=== PATIENT | female | born 1970 | race Caucasian/White ===

== ENCOUNTER 2018-02-27 10:23 | Observation (INO) | payer BC ==
[2018-02-27] MEDS ORDERED: SODIUM CHLORIDE 1,000 ML IV STA (10:56)
[2018-02-27] MEDS ORDERED: ACETAMINOPHEN 1000 MG/100 ML VIAL (NON FORMULARY) IVPB ONE (10:56)
[2018-02-27] MEDS ORDERED: ACETAMINOPHEN INJECTION 100 ML IVPB ONE (10:58)
[2018-02-27 10:59] LABS: HEMATOCRIT 32.7 % (32.4-45.2); HEMOGLOBIN 11.2 GM/dl (10.7-15.3); LYMPH % 13.3 % (8-40); MCH 27.4 pg (25.7-33.7); MCHC 34.2 g/dl (32.0-36.0); MEAN CELL VOLUME 80.1 fl (80-96); MEAN PLT VOLUME 8.4 fl (7.5-11.1); NEUT % 78.8 % (42.8-82.8); PLATELET COUNT 186 K/MM3 (134-434); RBC 4.08 M/mm3 (3.60-5.2); RDW 16.4 % (11.6-15.6); WHITE BLOOD COUNT 5.7 K/mm3 (4.0-10.8)
[2018-02-27 11:00] LABS: BASO % 1.9 % (0-2.0)
--- NOTE | 2018-02-27 11:03 | PDOC ---
History of Present Illness - History of Present Illness Initial Comments: 02/27/18 10:56 47 yo F with no significant pmh who p/w fever and cough. Patient reports 3 days of intermittent fevers without chills, and non productive cough. Reports waking up this AM with gradual bitemporal, dull, pulsating LOZA, with absent photophobia , phonophobia, or aura. Also complains of intermittent lightheadedness, and decreased PO intake. Patient also endorses congestive type symptoms, and lower back pain this AM. Endorses PO tylenol intake. Denies N/V, rash, myalgias, CP, hemoptysis, SOB, neck stiffness, abdominal pain , diarrhea, constipation, urinary complaints, weakness, lightheadedness, sensory changes. PMHx: Denies ROS: as noted above SHx: Recent sick contacts children. Works as Kindergarten statistical methods teacher. Daily hiking. Denies recent traveling or camping. Denies tobacco, Etoh , or IVDA. allergies: NKDA <Humberto Lazo - Last Filed: 02/27/18 14:38> <Rom Vargas - Last Filed: 03/06/18 07:24> - General Chief Complaint: Respiratory Stated Complaint: HEADACHE & FEVER Time Seen by Provider: 02/27/18 10:30 Past History - Past Medical History Anemia: No Asthma: No Cancer: No Cardiac Disorders: No CVA: No COPD: No CHF: No Dementia: No Diabetes: No GI Disorders: No Disorders: No HTN: No Hypercholesterolemia: No Liver Disease: No Psychiatric Problems: Yes (ANXIETY) Seizures: No Thyroid Disease: No - Surgical History Abdominal Surgery: Yes (Umbilical Hernia Repair) Appendectomy: No Cardiac Surgery: No Cholecystectomy: No Lung Surgery: No Neurologic Surgery: No Orthopedic Surgery: No - Suicide/Smoking/Psychosocial Hx Smoking History: Never smoked Hx Alcohol Use: Yes Drug/Substance Use Hx: No Substance Use Type: None Hx Substance Use Treatment: No <Humberto Lazo - Last Filed: 02/27/18 14:38> <Rom Vargas - Last Filed: 03/06/18 07:24> - Past Medical History Allergies/Adverse Reactions: Allergies Allergy/AdvReac Type Severity Reaction Status Date / Time codeine Allergy Nausea/vomi Verified 05/16/15 08:17 ting Home Medications: Ambulatory Orders Paroxetine HCl [Paxil] 10 mg PO HS 05/24/14 Amox-Tr/K Cl [Augmentin 875-125mg Tablet -] 1 tab PO BID@0800,1730 #10 tablet Review of Systems - Review of Systems Comments:: 02/27/18 11:03 GENERAL/CONSTITUTIONAL: No fever or chills. No weakness. HEAD, EYES, EARS, NOSE AND THROAT: No change in vision. No ear pain or discharge. No sore throat. CARDIOVASCULAR: No chest pain or shortness of breath RESPIRATORY: +cough. No wheezing, or hemoptysis. GASTROINTESTINAL: No nausea, vomiting, diarrhea or constipation. GENITOURINARY: No dysuria, frequency, or change in urination. MUSCULOSKELETAL: No joint or muscle swelling or pain. No neck pain. . SKIN: No rash NEUROLOGIC: + headache. No vertigo, loss of consciousness, or change in strength /sensation. ENDOCRINE: No increased thirst. No abnormal weight change HEMATOLOGIC/LYMPHATIC: No anemia, easy bleeding, or history of blood clots. ALLERGIC/IMMUNOLOGIC: No hives or skin allergy. <Humberto Lazo - Last Filed: 02/27/18 14:38> *Physical Exam - Vital Signs Last Vital Signs Temp Pulse Resp BP Pulse Ox 102.9 F H 88 16 103/59 100 02/27/18 10:30 02/27/18 10:30 02/27/18 10:30 02/27/18 10:30 02/27/18 10:30 - Physical Exam Comments: 02/27/18 11:04 GENERAL: Awake, alert, and fully oriented, in no acute distress HEAD: No signs of trauma, normocephalic, atraumatic EYES: PERRLA, EOMI, sclera anicteric, conjunctiva clear ENT: Dry mucous membranes. Auricles normal inspection, hearing grossly normal, nares patent, oropharynx clear without exudates. NECK: Normal ROM, supple, no lymphadenopathy, JVD, or masses LUNGS: No distress, speaks full sentences, clear to auscultation bilaterally HEART: Regular rate and rhythm, normal S1 and S2, no murmurs, rubs or gallops, peripheral pulses normal and equal bilaterally. EXTREMITIES : Normal inspection, Normal range of motion, no edema. No clubbing or cyanosis. SKIN: Warm, Dry, normal turgor, no rashes or lesions noted <Humberto Lazo - Last Filed: 02/27/18 14:38> - Vital Signs Last Vital Signs Temp Pulse Resp BP Pulse Ox 99.6 F 85 18 103/59 100 02/27/18 14:30 02/27/18 14:30 02/27/18 14:30 02/27/18 10:30 02/27/18 10:30 <Rom Vargas S - Last Filed: 03/06/18 07:24> ED Treatment Course - LABORATORY CBC & Chemistry Diagram: 02/27/18 10:55 02/27/18 10:55 <Humberto Lazo - Last Filed: 02/27/18 14:38> - LABORATORY CBC & Chemistry Diagram: 03/02/18 06:30 03/02/18 06:30 - ADDITIONAL ORDERS Additional order review: Laboratory Results 02/27/18 02/27/18 02/27/18 12:38 12:15 10:55 Sodium 133 L Potassium 3.7 Chloride 102 Carbon Dioxide 25 Anion Gap 6 L BUN 8 Creatinine 0.8 Creat Clearance w eGFR > 60 Random Glucose 109 H Lactic Acid 0.9 Calcium 8.5 Total Bilirubin 0.7 AST 83 H ALT 74 H Alkaline Phosphatase 81 Total Protein 6.6 Albumin 3.6 Urine Color Fabiola Urine Appearance Clear Urine pH 5.5 Ur Specific [place] 1.010 Urine Protein 1+ H Urine Glucose (UA) Negative Urine Ketones 1+ H Urine Blood 3+ H Urine Nitrite Negative Urine Bilirubin Negative Urine Urobilinogen 1.0 Ur Leukocyte Esterase Negative Urine RBC 50-80 Urine WBC 0-3 Ur Epithelial Cells Rare 02/27/18 10:55 Influenza Types A,B Antigen (HAIDER) - Final Nasopharyngeal Swab - Final 02/27/18 10:55 RBC 4.08 MCV 80.1 MCHC 34.2 RDW 16.4 H MPV 8.4 Neutrophils % 78.8 Lymphocytes % 13.3 Monocytes % 6.0 Eosinophils % 0.0 Basophils % 1.9 - Medications Given in the ED: ED Medications Discontinued Medications Generic Name Dose Route Start Last Admin Trade Name Freq PRN Reason Stop Dose Admin Acetaminophen 1,000 mg 02/27/18 10:56 02/27/18 11:04 Ofirmev Injection - IVPB 02/27/18 10:57 1,000 mg ONCE ONE Administration Ceftriaxone Sodium 1,000 mg 02/27/18 13:35 02/27/18 14:00 Rocephin - IVPUSH 02/27/18 13:36 1,000 mg ONCE ONE Administration Sodium Chloride 1,000 mls @ 1,000 mls/hr 02/27/18 10:56 02/27/18 11:00 Normal Saline - IV 02/27/18 11:55 1,000 mls/hr ASDIR STA Administration Oseltamivir Phosphate 75 mg 02/27/18 11:21 02/27/18 11:35 Tamiflu - PO 02/27/18 11:22 75 mg ONCE ONE Administration <Rom Vargas S - Last Filed: 03/06/18 07:24> Medical Decision Making - Medical Decision Making 02/27/18 11:04 47 yo F with no significant pmh who p/w fever, cough, and LOZA. A&OX3, PO temp 102.9, VSS. Patient with absent nuchal findings, neruo complaints, or AMS. Low suspicion of meningitis. Low suspicion of SAH. Patient LOZA gradual onset, low severity, and consistent with prior LOZA's. Differential includes viral URI, PNA, Influenza. ED Course: CBC,CMP NS, Tylenol IV 1000 mg CXR, Influenza A&B Swab 02/27/18 11:25 Tamiflu sent to pharmacy 02/27/18 13:20 CXR: RLL posterior mass like density. CT Chest 02/27/18 14:38 Patient admitted to med/surg Dr. up. Consulted Dr. Rae Infectious disease and Dr. Francisco pulmonology <Humberto Lazo - Last Filed: 02/27/18 14:38> *DC/Admit/Observation/Transfer - Discharge Dispostion Decision to Admit order: Yes - Attestations Physician Attestion: 02/27/18 11:17 I attest to the information provided in this note. <Humberto Lazo - Last Filed: 02/27/18 14:38> - Discharge Dispostion Decision to Admit order: Yes <Rom Vargas S - Last Filed: 03/06/18 07:24> Diagnosis at time of Disposition: Cough, Pulmonary infiltrate - Discharge Dispostion Disposition: HOME Condition at time of disposition: Good
[2018-02-27] MEDS ORDERED: OSELTAMIVIR PHOSPHATE 75 MG CAPSULE PO ONE (11:21)
[2018-02-27 11:27] LABS: ALBUMIN 3.6 g/dl (3.5-5.0); ALK PHOS 81 U/L (32-92); ANION GAP 6 (8-16); BILIRUBIN,TOTAL 0.7 mg/dl (0.2-1.0); BLOOD UREA NITROGEN 8 mg/dl (7-18); CALCIUM 8.5 mg/dl (8.4-10.2); CHLORIDE 102 mmol/L (98-107); CO2 25 mmol/L (22-28); CREATININE 0.8 mg/dl (0.6-1.3); GLUCOSE,RANDOM 109 mg/dl (74-106); POTASSIUM 3.7 mmol/L (3.5-5.1); SGOT/AST 83 U/L (10-42); SGPT/ALT 74 U/L (10-40); SODIUM 133 mmol/L (136-145); TOT PROT 6.6 g/dl (6.4-8.3)
[2018-02-27] MEDS ORDERED: OSELTAMIVIR PHOSPHATE 75 MG CAPSULE ONE (11:29)
[2018-02-27 12:46] LABS: PH,URINE 5.5 (4.5-8); URINE APPEARANCE Clear; URINE BILIRUBIN Negative (NEGATIVE); URINE GLUCOSE (UA) Negative (NEGATIVE); URINE KETONE 1+ (NEGATIVE); URINE LEUK ESTERASE Negative (NEGATIVE); URINE NITRITE Negative (NEGATIVE)
[2018-02-27 12:47] LABS: URINE COLOR AMBER; URINE PROTEIN 1+ (NEGATIVE)
[2018-02-27 12:59] LABS: EPI CELLS RARE /HPF; URINE RBC 50-80 /hpf (0-3); URINE WBC 0-3 (0-5)
[2018-02-27] MEDS ORDERED: AZITHROMYCIN IVPB 500 MG in DEXTROSE 5%-WATER - 250 ML IVPB ONE (13:35)
[2018-02-27] MEDS ORDERED: AZITHROMYCIN 500 MG VIAL IVPB ONE (13:54)
[2018-02-27] MEDS ORDERED: cefTRIAXone SODIUM 1 GM VIAL ONE (13:54)
--- NOTE | 2018-02-27 14:53 | PDOC ---
Attending Attestation - Resident Resident Name: Rodolfo Lazoson - ED Attending Attestation I have performed the following: I have examined & evaluated the patient, The case was reviewed & discussed with the resident, I agree w/resident's findings & plan, Exceptions are as noted - HPI HPI: Fever, cough, malais x 3 days 02/27/18 14:52 - Physicial Exam PE: Alert.oriented x 3 Flushed face Hyperemic pharynx Few crackles right base 02/27/18 14:49 - Critical Care Time Total Critical Care Time: 30 Critical Care Statement: The care of this patient involved high complexity decision making to prevent further life threatening deterioration of the patient 's condition and/or to evaluate & treat vital organ system(s) failure or risk of failure. - Medical Decision Making Patient has been worked out forsuspected viral syndrome, vs pneumonia Blood work and atbc started in a timely fashion 02/27/18 14:52
[2018-02-27 16:30] VITALS: BMI 22.9
--- NOTE | 2018-02-27 16:57 | HP ---
Admitting History and Physical - Primary Care Physician PCP: Ruben Story - Admission History of Present Illness: 47 yo F with no significant pmh who p/w fever and cough. Patient reports 3 days of intermittent fevers without chills, and non productive cough. Reports waking up this AM with gradual bitemporal, dull, pulsating LOZA, with absent photophobia , phonophobia, or aura. Also complains of intermittent lightheadedness, and decreased PO intake. Patient also endorses congestive type symptoms, and lower back pain this AM. Endorses PO tylenol intake. - Past Medical History ...LMP: 02/20/18 ...: No - Smoking History Smoking history: Never smoked Have you smoked in the past 12 months: No - Alcohol/Substance Use Hx Alcohol Use: Yes (social) Home Medications - Allergies Allergies/Adverse Reactions: Allergies Allergy/AdvReac Type Severity Reaction Status Date / Time codeine Allergy Nausea/vomi Verified 05/16/15 08:17 ting - Home Medications Home Medications: Ambulatory Orders Paroxetine HCl [Paxil] 10 mg PO HS 05/24/14 Amox-Tr/K Cl [Augmentin 875-125mg Tablet -] 1 tab PO BID@0800,1730 #10 tablet Physical Examination Vital Signs: Vital Signs Temperature 100.3 F H 02/27/18 16:08 Pulse Rate 96 H 02/27/18 16:08 Respiratory Rate 18 02/27/18 16:08 Blood Pressure 90/53 02/27/18 16:08 O2 Sat by Pulse Oximetry (%) 100 02/27/18 16:08 Constitutional: Yes: No Distress HENT: Yes: Atraumatic Neck: Yes: Supple Cardiovascular: Yes: Regular Rate and Rhythm Respiratory: Yes: Rhonchi, Wheezes Gastrointestinal: Yes: Normal Bowel Sounds Extremities: Yes: WNL Edema: No Peripheral Pulses WNL: Yes Neurological: Yes: Alert, Oriented Labs: CBC, BMP 02/27/18 10:55 02/27/18 10:55 Imaging - Results X-ray: Report Reviewed Cat Scan: Report Reviewed Problem List - Problems (1) Pneumonia Assessment/Plan: iv abx prn nebs pulmonary and id consult Code(s): J18.9 - PNEUMONIA, UNSPECIFIED ORGANISM (2) Cough Assessment/Plan: prn cough syrup Code(s): R05 - COUGH (3) Pulmonary infiltrate Code(s): R91.8 - OTHER NONSPECIFIC ABNORMAL FINDING OF LUNG FIELD Assessment/Plan Laboratory Tests 02/27/18 02/27/18 02/27/18 10:55 10:55 12:15 WBC 5.7 RBC 4.08 Hgb 11.2 Hct 32.7 MCV 80.1 MCH 27.4 MCHC 34.2 RDW 16.4 H Plt Count 186 MPV 8.4 Neutrophils % 78.8 Lymphocytes % 13.3 Monocytes % 6.0 Eosinophils % 0.0 Basophils % 1.9 Sodium 133 L Potassium 3.7 Chloride 102 Carbon Dioxide 25 Anion Gap 6 L BUN 8 Creatinine 0.8 Creat Clearance w eGFR > 60 Random Glucose 109 H Lactic Acid 0.9 Calcium 8.5 Total Bilirubin 0.7 AST 83 H ALT 74 H Alkaline Phosphatase 81 Total Protein 6.6 Albumin 3.6 Urine Color Urine Appearance Urine pH Ur Specific [place] Urine Protein Urine Glucose (UA) Urine Ketones Urine Blood Urine Nitrite Urine Bilirubin Urine Urobilinogen Ur Leukocyte Esterase Urine RBC Urine WBC Ur Epithelial Cells 02/27/18 12:38 WBC RBC Hgb Hct MCV MCH MCHC RDW Plt Count MPV Neutrophils % Lymphocytes % Monocytes % Eosinophils % Basophils % Sodium Potassium Chloride Carbon Dioxide Anion Gap BUN Creatinine Creat Clearance w eGFR Random Glucose Lactic Acid Calcium Total Bilirubin AST ALT Alkaline Phosphatase Total Protein Albumin Urine Color Fabiola Urine Appearance Clear Urine pH 5.5 Ur Specific [place] 1.010 Urine Protein 1+ H Urine Glucose (UA) Negative Urine Ketones 1+ H Urine Blood 3+ H Urine Nitrite Negative Urine Bilirubin Negative Urine Urobilinogen 1.0 Ur Leukocyte Esterase Negative Urine RBC 50-80 Urine WBC 0-3 Ur Epithelial Cells Rare
[2018-02-27] MEDS ORDERED: ALBUTEROL SO4 0.083% IH SOL 2.5 MG/3 ML VIAL.NEB. NEB PRN (17:00)
--- NOTE | 2018-02-27 17:59 | CON.ID ---
Consult Consult Specialty:: infectious diseases Reason for Consultation:: pneumonia - History of Present Illness Chief Complaint: cough fever weakness History of Present Illness: 47 yo F with no significant pmh who is admitted with fever and cough. Patient reports 3 days of intermittent fevers without chills, and non productive cough. patient mentions that she has takne multiple tylenolol with no relief and finally came to the hospital also she is c/o of severe headache and weakness minimal sputum production patient came to the hospital and was worked up - History Source History Provided By: Patient Limitations to Obtaining History: No Limitations - Past Medical History ...LMP: 02/20/18 ...: No - Alcohol/Substance Use Hx Alcohol Use: Yes (social) - Smoking History Smoking history: Never smoked Have you smoked in the past 12 months: No Home Medications - Allergies Allergies/Adverse Reactions: Allergies Allergy/AdvReac Type Severity Reaction Status Date / Time codeine Allergy Nausea/vomi Verified 05/16/15 08:17 ting - Home Medications Home Medications: Ambulatory Orders Paroxetine HCl [Paxil] 10 mg PO HS 05/24/14 Oseltamivir Phosphate [Tamiflu] 75 mg PO BID 5 Days #10 capsule MDD 2 tab Review of Systems - Review of Systems Constitutional: reports: Chills, Fever Eyes: reports: No Symptoms HENT: reports: No Symptoms Cardiovascular: reports: No Symptoms Respiratory: reports: Cough, SOB Gastrointestinal: reports: No Symptoms Genitourinary: reports: No Symptoms Musculoskeletal: reports: No Symptoms Integumentary: reports: No Symptoms Neurological: reports: No Symptoms Endocrine: reports: No Symptoms Hematology/Lymphatic: reports: No Symptoms Psychiatric: reports: No Symptoms Physical Exam Vital Signs: Vital Signs Temperature 100.3 F H 02/27/18 16:08 Pulse Rate 96 H 02/27/18 16:08 Respiratory Rate 18 02/27/18 16:08 Blood Pressure 90/53 02/27/18 16:08 O2 Sat by Pulse Oximetry (%) 100 02/27/18 16:08 Constitutional: Yes: Well Nourished, Calm, Mild Distress Eyes: Yes: Conjunctiva Clear HENT: Yes: Atraumatic Neck: Yes: Supple, Trachea Midline Cardiovascular: Yes: Regular Rate and Rhythm Respiratory: Yes: Poor Air Entry (on the rt side), Rhonchi Gastrointestinal: Yes: Normal Bowel Sounds, Soft Musculoskeletal: Yes: WNL Extremities: Yes: WNL Neurological: Yes: Alert, Oriented Labs: CBC, BMP 02/27/18 10:55 02/27/18 10:55 Imaging - Results Chest X-ray: Report Reviewed, Image Reviewed Cat Scan: Report Reviewed, Image Reviewed Assessment/Plan Problem List - Problems (1) Pneumonia Code(s): J18.9 - PNEUMONIA, UNSPECIFIED ORGANISM (2) Cough Code(s): R05 - COUGH (3) Pulmonary infiltrate Code(s): R91.8 - OTHER NONSPECIFIC ABNORMAL FINDING OF LUNG FIELD plan will start patient on abx monitor for fever close watch rest as per the team
[2018-02-27] MEDS: ACETAMINOPHEN 325 MG TABLET (FP) PO PRN (18:31)
[2018-02-27] MEDS: PIPERACILLIN/TAZOB 3.375 GM 3.375 GM in DEXTROSE 5%-WATER - 50 ML IVPB SCH (19:24)
[2018-02-27] MEDS ORDERED: ZOLPIDEM TARTRATE 5 MG TABLET PO PRN (21:13)
[2018-02-27] MEDS: PARoxetine HCL 20 MG TABLET (FP) PO SCH (21:36)
[2018-02-28] MEDS: PIPERACILLIN/TAZOB 3.375 GM 3.375 GM in DEXTROSE 5%-WATER - 50 ML IVPB SCH ×3 (01:17→18:10)
[2018-02-28] MEDS: ACETAMINOPHEN 325 MG TABLET (FP) PO PRN ×2 (05:08→22:15)
[2018-02-28 08:19] LABS: BASO % 0.5 % (0-2.0); EOS % 0.1 % (0-4.5); HEMATOCRIT 31.2 % (32.4-45.2); HEMOGLOBIN 10.4 GM/dl (10.7-15.3); LYMPH % 17.8 % (8-40); MCH 26.6 pg (25.7-33.7); MCHC 33.3 g/dl (32.0-36.0); MEAN PLT VOLUME 9.1 fl (7.5-11.1); MONO % 9.7 % (3.8-10.2); NEUT % 71.9 % (42.8-82.8); PLATELET COUNT 209 K/MM3 (134-434); WHITE BLOOD COUNT 5.1 K/mm3 (4.0-10.8)
[2018-02-28 10:03] LABS: ALBUMIN 3.2 g/dl (3.5-5.0); ALK PHOS 104 U/L (32-92); ANION GAP 8 (8-16); BILIRUBIN,TOTAL 0.6 mg/dl (0.2-1.0); BLOOD UREA NITROGEN 6 mg/dl (7-18); CALCIUM 8.2 mg/dl (8.4-10.2); CHLORIDE 102 mmol/L (98-107); CO2 21 mmol/L (22-28); CREATININE 0.8 mg/dl (0.6-1.3); GLUCOSE,RANDOM 119 mg/dl (74-106); POTASSIUM 3.6 mmol/L (3.5-5.1); SGOT/AST 98 U/L (10-42); SGPT/ALT 103 U/L (10-40); SODIUM 131 mmol/L (136-145); TOT PROT 6.2 g/dl (6.4-8.3)
--- NOTE | 2018-02-28 15:24 | PN ---
Progress Note, Physician - Current Medication List Current Medications: Active Medications Acetaminophen (Tylenol -) 650 mg PO Q6H PRN PRN Reason: FEVER Last Admin: 02/28/18 05:08 Dose: 650 mg Albuterol Sulfate (Ventolin 0.083% Nebulizer Soln -) 1 amp NEB Q4H PRN PRN Reason: SHORT OF BREATH/WHEEZING Piperacillin Sod/Tazobactam (Sod 3.375 gm/ Dextrose) 50 mls @ 100 mls/hr IVPB Q8H-IV WOLF PRN Reason: Protocol Last Admin: 02/28/18 10:13 Dose: 100 mls/hr Paroxetine HCl (Paxil -) 10 mg PO HS WOLF Last Admin: 02/27/18 21:36 Dose: 10 mg Zolpidem Tartrate (Ambien -) 5 mg PO HS PRN PRN Reason: INSOMNIA Last Admin: 02/27/18 22:13 Dose: 5 mg - Objective Vital Signs: Vital Signs Temperature 101.0 F H 02/28/18 06:00 Pulse Rate 94 H 02/28/18 06:00 Respiratory Rate 18 02/28/18 08:49 Blood Pressure 102/45 02/28/18 06:00 O2 Sat by Pulse Oximetry (%) 97 02/28/18 08:49 Constitutional: Yes: No Distress HENT: Yes: Atraumatic Neck: Yes: Supple Cardiovascular: Yes: Regular Rate and Rhythm Respiratory: Yes: Rhonchi Gastrointestinal: Yes: Normal Bowel Sounds Extremities: Yes: WNL Edema: No Neurological: Yes: Alert, Oriented Labs: CBC, BMP 02/28/18 07:30 02/28/18 07:30 Problem List - Problems (1) Pneumonia Assessment/Plan: iv abx prn nebs Code(s): J18.9 - PNEUMONIA, UNSPECIFIED ORGANISM (2) Cough Assessment/Plan: prn cough syrup Code(s): R05 - COUGH (3) Pulmonary infiltrate Code(s): R91.8 - OTHER NONSPECIFIC ABNORMAL FINDING OF LUNG FIELD
--- NOTE | 2018-02-28 17:21 | PN ---
Progress Note, Physician - Current Medication List Current Medications: Active Medications Acetaminophen (Tylenol -) 650 mg PO Q6H PRN PRN Reason: FEVER Last Admin: 02/28/18 05:08 Dose: 650 mg Albuterol Sulfate (Ventolin 0.083% Nebulizer Soln -) 1 amp NEB Q4H PRN PRN Reason: SHORT OF BREATH/WHEEZING Piperacillin Sod/Tazobactam (Sod 3.375 gm/ Dextrose) 50 mls @ 100 mls/hr IVPB Q8H-IV WOLF PRN Reason: Protocol Last Admin: 02/28/18 10:13 Dose: 100 mls/hr Paroxetine HCl (Paxil -) 10 mg PO HS WOLF Last Admin: 02/27/18 21:36 Dose: 10 mg Zolpidem Tartrate (Ambien -) 5 mg PO HS PRN PRN Reason: INSOMNIA Last Admin: 02/27/18 22:13 Dose: 5 mg - Objective Vital Signs: Vital Signs Temperature 101.0 F H 02/28/18 06:00 Pulse Rate 94 H 02/28/18 06:00 Respiratory Rate 18 02/28/18 08:49 Blood Pressure 102/45 02/28/18 06:00 O2 Sat by Pulse Oximetry (%) 97 02/28/18 08:49 Labs: CBC, BMP 02/28/18 07:30 02/28/18 07:30
--- NOTE | 2018-02-28 18:13 | CON.PULM ---
Consult Consult Specialty:: PULMONARY Referred by:: MARU Reason for Consultation:: PNEUMONIA - History of Present Illness Chief Complaint: COUGH/FEVER History of Present Illness: 47 yo F with no significant pmh who p/w fever and cough. Patient reports 3 days of intermittent fevers without chills, and non productive cough. Reports waking up this AM with gradual bitemporal, dull, pulsating LOZA, with absent photophobia , phonophobia, or aura. Also complains of intermittent lightheadedness, and decreased PO intake. Patient also endorses congestive type symptoms, and lower back pain this AM. Endorses PO tylenol intake. 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 Cardio/Vascular: No: AFIB Pulmonary: No: Asthma, COPD Gastrointestinal: No: Ascites Hepatobiliary: No: Cirrhosis Renal/: No: Renal Failure ...LMP: 02/20/18 ...: No Psych: No: Addictions Endocrine: No: Diabetes Mellitus - Alcohol/Substance Use Hx Alcohol Use: Yes (social) - Smoking History Smoking history: Never smoked Have you smoked in the past 12 months: No - Social History Place of : [facility] Home Medications - Allergies Allergies/Adverse Reactions: Allergies Allergy/AdvReac Type Severity Reaction Status Date / Time codeine Allergy Nausea/vomi Verified 05/16/15 08:17 ting - Home Medications Home Medications: Ambulatory Orders Paroxetine HCl [Paxil] 10 mg PO HS 05/24/14 Oseltamivir Phosphate [Tamiflu] 75 mg PO BID 5 Days #10 capsule MDD 2 tab Family Disease History - Family Disease History Family History: Unremarkable Review of Systems - Review of Systems Constitutional: reports: Fever, Lethargy, Night Sweats Eyes: denies: Blind Spots HENT: denies: Difficult Swallowing Neck: denies: Decreased ROM Cardiovascular: denies: Chest Pain Respiratory: reports: Cough, Exercise Intolerance, SOB, SOB on Exertion. denies : Hemoptysis Gastrointestinal: denies: Abdominal Pain Genitourinary: denies: Burning Breasts: reports: No Symptoms Reported Physical Exam Vital Sings: Vital Signs Temperature 101.0 F H 02/28/18 06:00 Pulse Rate 94 H 02/28/18 06:00 Respiratory Rate 18 02/28/18 08:49 Blood Pressure 102/45 02/28/18 06:00 O2 Sat by Pulse Oximetry (%) 97 02/28/18 08:49 Constitutional: Yes: Calm Eyes: Yes: EOM Intact HENT: Yes: Normocephalic Neck: Yes: Trachea Midline Cardiovascular: Yes: Regular Rate and Rhythm Respiratory: Yes: Rhonchi (right base) Gastrointestinal: Yes: Normal Bowel Sounds Extremities: Yes: WNL Neurological: Yes: WNL Labs: CBC, BMP 02/28/18 07:30 02/28/18 07:30 rest reviewed Imaging - Results Chest X-ray: Report Reviewed, Image Reviewed Cat Scan: Report Reviewed, Image Reviewed Assessment/Plan CAP PANIC DISORDER IV ABS CHECK CULTURES INCENTIVE PAZ NEBS/O2 NEEDED Vanesa MOSS MD
--- NOTE | 2018-02-28 18:17 | PN ---
Progress Note, Physician History of Present Illness: starting to feel better breathing better - Current Medication List Current Medications: Active Medications Acetaminophen (Tylenol -) 650 mg PO Q6H PRN PRN Reason: FEVER Last Admin: 02/28/18 05:08 Dose: 650 mg Albuterol Sulfate (Ventolin 0.083% Nebulizer Soln -) 1 amp NEB Q4H PRN PRN Reason: SHORT OF BREATH/WHEEZING Piperacillin Sod/Tazobactam (Sod 3.375 gm/ Dextrose) 50 mls @ 100 mls/hr IVPB Q8H-IV WOFL PRN Reason: Protocol Last Admin: 02/28/18 10:13 Dose: 100 mls/hr Paroxetine HCl (Paxil -) 10 mg PO HS WOLF Last Admin: 02/27/18 21:36 Dose: 10 mg Zolpidem Tartrate (Ambien -) 5 mg PO HS PRN PRN Reason: INSOMNIA Last Admin: 02/27/18 22:13 Dose: 5 mg - Objective Vital Signs: Vital Signs Temperature 101.0 F H 02/28/18 06:00 Pulse Rate 94 H 02/28/18 06:00 Respiratory Rate 18 02/28/18 08:49 Blood Pressure 102/45 02/28/18 06:00 O2 Sat by Pulse Oximetry (%) 97 02/28/18 08:49 Constitutional: Yes: No Distress, Calm Cardiovascular: Yes: Regular Rate and Rhythm Respiratory: Yes: Regular, Poor Air Entry, Rhonchi (rt side) Gastrointestinal: Yes: Normal Bowel Sounds, Soft Musculoskeletal: Yes: WNL Extremities: Yes: WNL Neurological: Yes: Alert, Oriented Psychiatric: Yes: Alert, Oriented Labs: CBC, BMP 02/28/18 07:30 02/28/18 07:30 Assessment/Plan Problem List - Problems (1) Pneumonia Code(s): J18.9 - PNEUMONIA, UNSPECIFIED ORGANISM (2) Cough Code(s): R05 - COUGH (3) Pulmonary infiltrate Code(s): R91.8 - OTHER NONSPECIFIC ABNORMAL FINDING OF LUNG FIELD plan continue abx close watch incentive nayan rest as per the team
[2018-02-28] MEDS: PARoxetine HCL 20 MG TABLET (FP) PO SCH (22:15)
[2018-02-28] MEDS ORDERED: PT OWN MED DRAWER 7, Y5N ONE (23:32)
[2018-03-01] MEDS: PIPERACILLIN/TAZOB 3.375 GM 3.375 GM in DEXTROSE 5%-WATER - 50 ML IVPB SCH ×3 (01:44→18:10)
[2018-03-01] MEDS: ACETAMINOPHEN 325 MG TABLET (FP) PO PRN (04:35)
[2018-03-01] MEDS ORDERED: IBUPROFEN 600 MG TABLET (FP) PO PRN (10:21)
--- NOTE | 2018-03-01 13:42 | PN ---
Progress Note (short form) - Note Progress Note: PULMONARY FEVERS CONTINUE AWAKE/ALERT/ANXIOUS ANICTERIC RIGHT BASE CRACKLES S1S2 BS+ NO EDEMA LABS/MEDS/NOTES/IMAGES REVIEWED ACUTE COMMUNITY ACQUIRED PNEUMONIA IV ANTIBIOTICS CHECK URINE ANTIGENS FOLLOW BLOOD CULTURES CONSIDER ECHO FOR SATURDAY IF FEVERS CONTINUE Vanesa MOSS MD
--- NOTE | 2018-03-01 16:53 | PN ---
Progress Note, Physician - Current Medication List Current Medications: Active Medications Acetaminophen (Tylenol -) 650 mg PO Q6H PRN PRN Reason: FEVER Last Admin: 03/01/18 04:35 Dose: 650 mg Albuterol Sulfate (Ventolin 0.083% Nebulizer Soln -) 1 amp NEB Q4H PRN PRN Reason: SHORT OF BREATH/WHEEZING Piperacillin Sod/Tazobactam (Sod 3.375 gm/ Dextrose) 50 mls @ 100 mls/hr IVPB Q8H-IV WOLF PRN Reason: Protocol Last Admin: 03/01/18 01:44 Dose: 100 mls/hr Ibuprofen (Motrin -) 600 mg PO Q6H PRN PRN Reason: FEVER Paroxetine HCl (Paxil -) 10 mg PO HS WOLF Last Admin: 02/28/18 22:15 Dose: 10 mg Zolpidem Tartrate (Ambien -) 5 mg PO HS PRN PRN Reason: INSOMNIA Last Admin: 02/27/18 22:13 Dose: 5 mg - Objective Vital Signs: Vital Signs Temperature 98.9 F 03/01/18 14:22 Pulse Rate 73 03/01/18 14:22 Respiratory Rate 16 03/01/18 14:22 Blood Pressure 90/57 03/01/18 14:22 O2 Sat by Pulse Oximetry (%) 99 03/01/18 14:22 Constitutional: Yes: No Distress HENT: Yes: Atraumatic Neck: Yes: Supple Cardiovascular: Yes: Regular Rate and Rhythm Respiratory: Yes: Rhonchi Gastrointestinal: Yes: Normal Bowel Sounds Extremities: Yes: WNL Edema: No Peripheral Pulses WNL: Yes Neurological: Yes: Alert, Oriented Labs: CBC, BMP 02/28/18 07:30 02/28/18 07:30 Problem List - Problems (1) Pneumonia Assessment/Plan: iv abx prn nebs Code(s): J18.9 - PNEUMONIA, UNSPECIFIED ORGANISM (2) Cough Code(s): R05 - COUGH (3) Pulmonary infiltrate Code(s): R91.8 - OTHER NONSPECIFIC ABNORMAL FINDING OF LUNG FIELD
[2018-03-01] MEDS: PARoxetine HCL 20 MG TABLET (FP) PO SCH (21:50)
[2018-03-02] MEDS ORDERED: PT OWN MED DRAWER 7, Y5N ONE (00:47)
[2018-03-02] MEDS: PIPERACILLIN/TAZOB 3.375 GM 3.375 GM in DEXTROSE 5%-WATER - 50 ML IVPB SCH ×2 (01:05→10:33)
[2018-03-02 09:34] LABS: ALK PHOS 134 U/L (32-92); ANION GAP 9 (8-16); BASO % 1.1 % (0-2.0); CALCIUM 8.5 mg/dl (8.4-10.2); CHLORIDE 101 mmol/L (98-107); CO2 24 mmol/L (22-28); EOS % 1.9 % (0-4.5); GLUCOSE,RANDOM 106 mg/dl (74-106); HEMATOCRIT 31.6 % (32.4-45.2); HEMOGLOBIN 10.2 GM/dl (10.7-15.3); LYMPH % 24.2 % (8-40); MCH 25.8 pg (25.7-33.7); MCHC 32.4 g/dl (32.0-36.0); MEAN CELL VOLUME 79.7 fl (80-96); MEAN PLT VOLUME 9.1 fl (7.5-11.1); MONO % 12.2 % (3.8-10.2); NEUT % 60.6 % (42.8-82.8); PLATELET COUNT 243 K/MM3 (134-434); POTASSIUM 3.8 mmol/L (3.5-5.1); RBC 3.96 M/mm3 (3.60-5.2); RDW 16.5 % (11.6-15.6); SGOT/AST 69 U/L (10-42); SGPT/ALT 95 U/L (10-40); SODIUM 134 mmol/L (136-145); WHITE BLOOD COUNT 4.2 K/mm3 (4.0-10.8)
[2018-03-02 09:48] LABS: BILIRUBIN,TOTAL < 0.5 mg/dl (0.2-1.0); BLOOD UREA NITROGEN < 6 mg/dl (7-18); CREATININE < 0.8 mg/dl (0.6-1.3)
[2018-03-02 10:56] VITALS: TEMP 98.9
--- NOTE | 2018-03-02 13:17 | PN ---
Progress Note, Physician History of Present Illness: patient doing well no issues breathing well - Current Medication List Current Medications: Active Medications Acetaminophen (Tylenol -) 650 mg PO Q6H PRN PRN Reason: FEVER Last Admin: 03/01/18 04:35 Dose: 650 mg Albuterol Sulfate (Ventolin 0.083% Nebulizer Soln -) 1 amp NEB Q4H PRN PRN Reason: SHORT OF BREATH/WHEEZING Piperacillin Sod/Tazobactam (Sod 3.375 gm/ Dextrose) 50 mls @ 100 mls/hr IVPB Q8H-IV WOLF PRN Reason: Protocol Last Admin: 03/02/18 10:33 Dose: Not Given Ibuprofen (Motrin -) 600 mg PO Q6H PRN PRN Reason: FEVER Last Admin: 03/01/18 17:45 Dose: 600 mg Paroxetine HCl (Paxil -) 10 mg PO HS WOLF Last Admin: 03/01/18 21:50 Dose: 10 mg Zolpidem Tartrate (Ambien -) 5 mg PO HS PRN PRN Reason: INSOMNIA Last Admin: 02/27/18 22:13 Dose: 5 mg - Objective Vital Signs: Vital Signs Temperature 98.9 F 03/02/18 10:00 Pulse Rate 84 03/02/18 10:00 Respiratory Rate 16 03/02/18 10:00 Blood Pressure 119/69 03/02/18 10:00 O2 Sat by Pulse Oximetry (%) 100 03/02/18 10:56 Constitutional: Yes: No Distress, Calm Neck: Yes: Supple, Trachea Midline Cardiovascular: Yes: Regular Rate and Rhythm Respiratory: Yes: Regular, CTA Bilaterally Gastrointestinal: Yes: Normal Bowel Sounds, Soft Musculoskeletal: Yes: WNL Extremities: Yes: WNL Neurological: Yes: Alert, Oriented Labs: CBC, BMP 03/02/18 06:30 03/02/18 06:30 Assessment/Plan Problem List - Problems (1) Pneumonia Code(s): J18.9 - PNEUMONIA, UNSPECIFIED ORGANISM (2) Cough Code(s): R05 - COUGH (3) Pulmonary infiltrate Code(s): R91.8 - OTHER NONSPECIFIC ABNORMAL FINDING OF LUNG FIELD plan patient doing well breathing better no fevers will change to oral abx rest continue current mgmt
[2018-03-02] MEDS ORDERED: AMOX TR/POT CLAV 875MG/125MG TABLETS (FP) PO SCH (13:30)
--- NOTE | 2018-03-02 14:21 | DS ---
Physical Examination Vital Signs: Vital Signs Temperature 98.9 F 03/02/18 10:00 Pulse Rate 84 03/02/18 10:00 Respiratory Rate 16 03/02/18 10:00 Blood Pressure 119/69 03/02/18 10:00 O2 Sat by Pulse Oximetry (%) 100 03/02/18 10:56 Labs: CBC, BMP 03/02/18 06:30 03/02/18 06:30 Discharge Summary Reason For Visit: COUGH PULMONARY INFILTRATE ON RADIOLOGY EXAM Current Active Problems Cough (Acute) Pneumonia (Acute) Pulmonary infiltrate (Acute) Condition: Good - Instructions Diet, Activity, Other Instructions: Please return to the emergency department with any new or worsening symptoms or concerns. Please follow up with your primary care physician within 72 hours. Please take 2 tabs of Tamiflu for 5 days. Referrals: Ben Gordon MD [Primary Care Provider] - Ruben Story MD [Staff Physician] - - Home Medications Comprehensive Discharge Medication List: Ambulatory Orders Paroxetine HCl [Paxil] 10 mg PO HS 05/24/14 Amox-Tr/K Cl [Augmentin 875-125mg Tablet -] 1 tab PO BID@0800,1730 #10 tablet dc home
[2018-03-02 14:32] VITALS: BP 111/69; PULSE 83
== END 2018-03-02 14:45 | disposition home or self-care (01) ==
LOC: FER 10:23 → FM/S 14:35 → INTOOBSV 14:35
PROVIDERS: ADMIT Internal Medicine; ATTEND Internal Medicine
PROC: 3E03329 Introduction of Other Anti-infective into Peripheral Vein, Percutaneous Approach (ICD-10-PCS; principal; 2018-02-27)
PROC: 3E033NZ Introduction of Analgesics, Hypnotics, Sedatives into Peripheral Vein, Percutaneous Approach (ICD-10-PCS; 2018-02-27)
PROC: 3E0337Z Introduction of Electrolytic and Water Balance Substance into Peripheral Vein, Percutaneous Approach (ICD-10-PCS; 2018-02-27)
DX: J18.9 Pneumonia, unspecified organism (principal); R05 Cough; R91.8 Other nonspecific abnormal finding of lung field; F41.0 Panic disorder [episodic paroxysmal anxiety]; Z88.5 Allergy status to narcotic agent
CPT/HCPCS: 36415; 71046-TC-FY; 71250-TC; 80053; 81003; 81015; 83605; 85025; 87040; 87086; 87804; 99283-25; G0378; J0131; J7030

== ENCOUNTER 2021-01-11 13:48 | Emergency (ER) | payer BC, OTHER | END 2021-01-11 13:55 | disposition home or self-care (01) | LOC: JVIRT 13:48 | DX: Z20.822 Contact with and (suspected) exposure to COVID-19 (principal) | CPT/HCPCS: C9803; G2251-GT; U0003 ==

== ENCOUNTER 2021-05-19 11:05 | Emergency (ER) | payer BC, OTHER | END 2021-05-19 11:14 | disposition home or self-care (01) | LOC: JVIRT 11:05 | DX: Z20.822 Contact with and (suspected) exposure to COVID-19 (principal) | CPT/HCPCS: C9803; Q3014-GT; U0003; U0005 ==

== ENCOUNTER 2021-06-22 08:11 | Day surgery (SDC) | payer BC, OTHER ==
[2021-06-20 11:19] VITALS: BMI 23.3
[2021-06-22 09:38] VITALS: PULSE 64
[2021-06-22 10:57] VITALS: BP 105/65; TEMP 97.7
== END 2021-06-22 10:15 | disposition home or self-care (01) ==
LOC: FASU-ENDO 08:11
PROVIDERS: ATTEND Internal Medicine Gastroenterology
PROC: 0DJD8ZZ Inspection of Lower Intestinal Tract, Via Natural or Artificial Opening Endoscopic (ICD-10-PCS; principal; 2021-06-22 09:16)
DX: Z12.11 Encounter for screening for malignant neoplasm of colon (principal); Z80.0 Family history of malignant neoplasm of digestive organs; Z83.71 Family history of colonic polyps; K57.30 Diverticulosis of large intestine without perforation or abscess without bleeding
CPT/HCPCS: 84703